=== PATIENT | male | born 1955 | race Caucasian/White ===

== ENCOUNTER 2017-12-27 11:25 | Emergency (ER) | payer OTHER ==
[~2017-12-27] VITALS: Ht 177.8 cm; Wt 127.0 kg
[2017-12-27] MEDS ORDERED: ASPIRIN ONE (11:28)
[2017-12-27 11:32] VITALS: BP 143/87
[2017-12-27] MEDS ORDERED: ASPIRIN PO STA (11:38)
[2017-12-27 11:48] LABS: BASOPHIL % 0.4 % (0.0-0.2); EOSINOPHIL # 0.1 10^3/uL (0.0-0.2); HEMOGLOBIN 15.3 g/dL (13.9-16.3); LYMPHOCYTES # 2.2 10^3/uL (1.0-4.8); LYMPHOCYTES % 32.3 % (24.0-44.0); MEAN CELL HGB 29.5 pg (26-34); MEAN CELL HGB CONCENTRATION 34.2 g/dL (33-37); MEAN CORP VOLUME 86.3 fL (78-100); MEAN PLATELET VOLUME 10.1 fL (7.8-11.0); MONOCYTES # 0.7 10^3/uL (0.3-0.8); MONOCYTES % 10.2 % (5.0-12.0); NEUTROPHIL # 3.8 10^3/uL (1.8-7.7); NEUTROPHILS % 54.8 % (41.0-85.0); RED CELL DISTRIBUTION WIDTH 13.7 % (11.5-14.5); WHITE BLOOD CELL 6.9 10^3/uL (4.5-11.0)
--- NOTE | 2017-12-27 11:52 | PCM.EKG ---
[facility] [place] Test Date: 2017-12-27 Test Time: 11:32:14 Pat Name: RODRI WILKERSON Department: Patient ID: [id number] Room: Gender: M Scanner Operator: : [id number] Requested By: JOSUE WAGONER Order Number: [id number] Reading MD: Josue WAGONER Measurements Intervals [place] Rate: 72 P: 47 SD: 146 QRS: 65 QRSD: 86 T: 54 QT: 402 QTc: 440 Interpretive Statements Normal sinus rhythm Normal ECG No previous ECG available for comparison Electronically Signed On 12-31-2017 1:37:32 CDT by Josue WAGONER Please click the below link to view image of tracing.
--- NOTE | 2017-12-27 11:59 | ER.PDOC ---
General Chief Complaint: Chest Pain-Cardiac Nature Stated Complaint: ABDOMINAL PAIN Time seen by MD: 11:56 Source: patient Exam Limitations: no limitations History of Present Illness Initial Comments Epigastric pain for a short time this morning that resolved upon arriving in the ED. Timing/Duration: gone now Severity/Quality: mild Radiation: no radiation Associated Symptoms: denies symptoms Exacerbated by: nothing Relieved By: nothing Allergies: Coded Allergies: No Known Allergies (Unverified , 12/27/17) Vital Signs First Vital Signs Date Time Temp Pulse Resp B/P (MAP) Pulse Ox O2 Delivery O2 Flow Rate FiO2 12/27/17 11:32 71 16 96 Room Air 12/27/17 11:32 143/87 (105) Last Vital Signs Date Time Temp Pulse Resp B/P (MAP) Pulse Ox O2 Delivery O2 Flow Rate FiO2 12/27/17 11:32 71 16 143/87 (105) 96 Room Air Past Medical History Medical History: no pertinent history Surgical History: appendectomy, tonsillectomy Social History Smoking: non-smoker Alcohol Use: none Drug Use: none Constitutional: no symptoms reported EENTM: no symptoms reported Respiratory: no symptoms reported Cardiovascular: no symptoms reported Gastrointestinal: see HPI Genitourinary: no symptoms reported All Other Systems: Reviewed and Negative Physical Exam General Appearance: No Apparent Distress, Obese HEENT: PERRL/EOMI, Normal ENT Inspection, TMs Normal, Pharynx Normal Neck: Non-Tender, Full Range of Motion, Supple, Normal Inspection Respiratory: chest non-tender, lungs clear, normal breath sounds, no respiratory distress, no accessory muscle use Cardiovascular: Normal Peripheral Pulses, Regular Rate, Rhythm, No Edema, No Gallop, No JVD, No Murmur Gastrointestinal: Normal Bowel Sounds, Non Tender, Soft Back: Normal Inspection, No CVA Tenderness, No Vertebral Tenderness Extremities: Normal Range of Motion, Non-Tender, Normal Inspection, No Pedal Edema, No Calf Tenderness, Normal Capillary Refill, Pelvis Stable Neurologic/Psychiatric: parts facilitator II-XII NML as Tested, No Motor/Sensory Deficits, Alert, Normal Mood/Affect, Oriented x 3 Skin: Normal Color, Warm/Dry Results/Orders Results/Orders Laboratory Tests Test 12/27/17 11:41 White Blood Count 6.9 10^3/uL (4.5-11.0) Red Blood Count 5.18 10^6/uL (4.50-5.90) Hemoglobin 15.3 g/dL (13.9-16.3) Hematocrit 44.7 % (37.0-53.0) Mean Corpuscular Volume 86.3 fL (78-100) Mean Corpuscular Hemoglobin 29.5 pg (26-34) Mean Corpuscular Hemoglobin Concent 34.2 g/dL (33-37) Red Cell Distribution Width 13.7 % (11.5-14.5) Platelet Count 250 10^3/uL (150-400) Mean Platelet Volume 10.1 fL (7.8-11.0) Neutrophils (%) (Auto) 54.8 % (41.0-85.0) Lymphocytes (%) (Auto) 32.3 % (24.0-44.0) Monocytes (%) (Auto) 10.2 % (5.0-12.0) Neutrophils # (Auto) 3.8 10^3/uL (1.8-7.7) Lymphocytes # (Auto) 2.2 10^3/uL (1.0-4.8) Monocytes # (Auto) 0.7 10^3/uL (0.3-0.8) Absolute Immature Granulocyte (auto 0.02 10^3 u/L (0-2) Eosinophils % 2.0 % (0.0-5.0) Basophils % 0.4 % (0.0-0.2) Basophils # 0.0 10^3/uL (0.0-0.1) Eosinophil Count 0.1 10^3/uL (0.0-0.2) Percent Immature Gran (Cell Imm) 0.30 % (0.00-0.50) Administered Medications Medications (Trade) Dose Ordered Sig/Jose Route PRN Reason Start Time Stop Time Status Last Admin Dose Admin Aspirin (Aspirin) 325 mg STAT STAT PO 12/27/17 11:38 12/27/17 11:41 DC 12/27/17 11:30 Progress Progress Patient continues to be pain free. EKG/XRAY/CT/US EKG Comments: Normal Course Vitals & review Data Vital Sign - Last 24 Hours 12/27/17 12/27/17 12/27/17 11:32 11:32 11:32 Pulse 71 71 71 Resp 16 16 16 B/P (MAP) 143/87 (105) Pulse Ox 96 96 O2 Delivery Room Air Room Air Laboratory Tests Test 12/27/17 11:41 White Blood Count 6.9 10^3/uL Red Blood Count 5.18 10^6/uL Hemoglobin 15.3 g/dL Hematocrit 44.7 % Mean Corpuscular Volume 86.3 fL Mean Corpuscular Hemoglobin 29.5 pg Mean Corpuscular Hemoglobin Concent 34.2 g/dL Red Cell Distribution Width 13.7 % Platelet Count 250 10^3/uL Mean Platelet Volume 10.1 fL Neutrophils (%) (Auto) 54.8 % Lymphocytes (%) (Auto) 32.3 % Monocytes (%) (Auto) 10.2 % Neutrophils # (Auto) 3.8 10^3/uL Lymphocytes # (Auto) 2.2 10^3/uL Monocytes # (Auto) 0.7 10^3/uL Absolute Immature Granulocyte (auto 0.02 10^3 u/L Eosinophils % 2.0 % Basophils % 0.4 % Basophils # 0.0 10^3/uL Eosinophil Count 0.1 10^3/uL Percent Immature Gran (Cell Imm) 0.30 % Departure Time of Disposition: 12:20 Disposition: 01 HOME, SELF-CARE Impression: Primary Impression: Pancreatitis, acute Condition: Improved Referrals: PCP,UNKNOWN (PCP) PRIMARY CARE PROVIDER Additional Instructions: F/U with your PCP in 2-3 days Duration or Time Spent with Pa: 60 mins Problem Qualifiers Primary Impression: Pancreatitis, acute Pancreatitis type: unspecified pancreatitis type Acute pancreatitis complication: unspecified Qualified Codes: K85.90 - Acute pancreatitis without necrosis or infection, unspecified JOSUE WAGONER MD Dec 27, 2017 11:59
[2017-12-27 12:10] LABS: CARBON DIOXIDE 26.7 mmol/L (20.0-32)
[2017-12-27 12:11] LABS: ALANINE AMINOTRANSFERASE(ML) 67 U/L (12-78); ALKALINE PHOSPHATASE 84 U/L (50-136); ASPARTATE AMINO TRANSFERASE 31 U/L (0-35); CALCIUM 9.5 mg/dL (8.4-10.5); GLUCOSE 97 mg/dL (70-110)
[2017-12-27 12:43] VITALS: BP 143/87
== END 2017-12-27 12:43 | disposition home or self-care (01) ==
LOC: ER 11:25
DX: K85.90 Acute pancreatitis without necrosis or infection, unspecified (principal); R79.1 Abnormal coagulation profile; F17.210 Nicotine dependence, cigarettes, uncomplicated; Z90.49 Acquired absence of other specified parts of digestive tract; Z90.89 Acquired absence of other organs
CPT/HCPCS: 36415; 80053; 83690; 84484; 85025; 85610; 85730; 86677; 93005; 99285